=== PATIENT | male | born 1955 | race Caucasian/White ===

== ENCOUNTER 2017-02-07 08:06 | Emergency (ER) | payer OTHER | END 2017-02-07 09:34 | disposition home or self-care (01) | LOC: FER 08:06 | DX: R04.0 Epistaxis (principal); I10 Essential (primary) hypertension; Z79.899 Other long term (current) drug therapy ==

== ENCOUNTER 2017-02-09 07:53 | Emergency (ER) | payer OTHER ==
[2017-02-09 09:04] LABS: BASOPHIL 1.5 % (0-2); EOSINOPHIL 5.1 % (0-5); HCT 44.4 % (42.0-52.0); HGB 15.2 g/dl (13.2-18.0); LYMPHOCYTE 20.7 % (15-48); MCH 30.5 pg (25.0-31.0); MCHC 34.2 g/dL (32.0-36.0); MONOCYTE 9.7 % (0-12); MPV 9.8 fL (6.0-9.5); PLT 255 K/uL (150-400); RBC 4.99 M/uL (4.70-6.00); RDW 13.4 % (11.5-14.0); WBC 6.5 K/uL (4.0-10.5)
[2017-02-09 09:05] LABS: INR 0.94 (0.9-1.2); PROTHROMBIN TIME 12.2 SECONDS (11.7-14.0); PTT 33.7 SECONDS (23.2-31.4)
[2017-02-09 09:19] LABS: CREATININE 0.8 mg/dL (0.7-1.2); POTASSIUM 4.4 mmol/L (3.5-5.1)
== END 2017-02-09 09:54 | disposition home or self-care (01) ==
LOC: FER 07:53
PROVIDERS: Emergency Medicine
DX: R04.0 Epistaxis (principal); I10 Essential (primary) hypertension; Z79.899 Other long term (current) drug therapy
CPT/HCPCS: 36415; 80048; 85025; 85610; 85730